=== PATIENT | female | born 1940 | race Caucasian/White ===

== ENCOUNTER 2017-02-01 17:10 | Emergency (ER) | payer MEDICARE ==
[~2017-02-01 17:10] MED LIST: ASA CHILDREN'S81 MG PO; ASTELIN NASAL S30 ML NS; CALCIUM + VITA1 EACH PO; CELEXA20 MG PO; COZAAR DPS50 MG PO; FEOSOL325 MG PO; FISH OIL300 MG PO; GLUCOPHAGE-DPS500 MG PO; LASIX40 M1 PO; LIPITOR40 MG PO; MICRO-K DPS10 MEQ PO; MIRALAX DPS17 GM PO; OMEPRAZOLE PO; TOPROL XL25 MG PO; TYLENOL325 MG PO; VITAMIN B COMP1 EACH PO; VITAMIN C250 MG PO; ZYRTEC10 M3 PO
--- NOTE | 2017-02-19 04:16 | ER ---
ADMIT: 02/01/2017 RM/LOC: ER [facility] MR#: [id number] [address] [facility] [address] [place], [place] [phone] DEE DEE BRIGHT [address] [address] Emergency Room Report SEX: F AGE: 76 : 1940 DATE: 02/01/2017 CHIEF COMPLAINT: Vomiting blood. HISTORY OF PRESENT ILLNESS: The patient is a 76-year-old female with known liver cirrhosis likely related to morbid obesity, who comes into the ER complaining that she vomited blood a couple of times. She states the vomiting blood began in the last several hours and she has had four episodes each one being probably a tablespoon of blood. There was fairly dark red apparently and no clots were noted. She does still have some nausea, but does not complain of any pain at this time. She normally sees a offset proof press operator in [place]. She states she has not had any dark stools or blood in her stools. She denies any chest pain or shortness of breath at this time. She has not had recent illness, and no fevers or chills. She denies any change in bowel or bladder function. REVIEW OF SYSTEMS: Ten-point review of systems is done and otherwise negative except as in HPI. PAST MEDICAL HISTORY: Liver cirrhosis, esophageal varices, diabetes, and hypertension. PAST SURGICAL HISTORY: Hysterectomy, heart valve replacement, and cardiac bypass. MEDICATIONS: See nurse's note. ALLERGIES: PENICILLIN AND SULFA. SOCIAL HISTORY: Denies smoking, drug, or alcohol use. She has never been a heavy user of alcohol in the past. PHYSICAL EXAMINATION: VITAL SIGNS: Blood pressure is 133/55, pulse 62, respirations 18, temp 97.3, and sats 98%. GENERAL: The patient is alert, no distress. HEENT: Head is atraumatic. Pupils are equal, round, and reactive to light. NECK: Supple. Airway is patent. LUNGS: Clear to auscultation. HEART: Regular rate and rhythm. ABDOMEN: Obese. Soft. She has some mild epigastric tenderness, but no rebound tenderness. No guarding. She does have active bowel sounds. SKIN: Warm and dry. She has sensation and motor intact grossly in all 4 extremities. No skin lesions or rashes. No ecchymosis or petechiae are noted. LABORATORY DATA: White count of 10, hemoglobin of 9.1, and platelets of 107. INR is 1.1. Sodium 143, potassium 5.7, her hemolyzed carbon dioxide 22, BUN 32, glucose 117, creatinine 1.4, AST 26, ALT 14, and lipase 152. EKG shows a sinus tachycardia, rate of 57, no signs of ST-elevation or acute PR. ADMIT: 02/01/2017 RM/LOC: [facility] MR#: [id number] [address] [place] [id number] DEANGELO DEE DEE A [address] [place] [address] Emergency Room Report SEX: F AGE: 76 : 1940 EMERGENCY DEPARTMENT COURSE: The patient presented with reports of vomiting blood and esophageal varices. We did go ahead and get blood drawn to check her blood counts or coagulation status and she presented by EMS with an IV in place. I had typed and crossed the patient for 2 units and established a second IV in the Emergency Department. She was given Protonix 80 mg IV, octreotide 50 mcg IV in addition to a 1 L bolus of normal saline. I spoke to Dr. Blake, who was on for the patient's primary care physician, Dr. Gilmore and due to her history of esophageal varices, who was not comfortable having the patient stay inpatient in our facility in case she would have worsening of her symptoms and severe bleeding. We would not really address it here appropriately. She normally sees Dr. Lieberman in [place], so I did contact the answering service of Dr. Lieberman and talked to the physician on-call for him. He has agreed to see the patient in consultation in [place] if we were to arrange transportation and obtain acceptance to a facility in [place]. The patient was accepted to be transfer to [facility] under the care of Dr. Victor Hugo Perez. Before transfer occurred, I shift ended and I checked the patient out to Dr. Antonio pending final disposition and transfer. At the time of transfer, the patient was stable with diagnosis of: 1. Upper gastrointestinal bleed. 2. Esophageal varices. 3. Liver cirrhosis. Tito Hidalgo MD/ kellen JOB #: [id number] CC: Tito Hidalgo MD, Attending Physician Teddy Gilmore MD, Family Physician
[2017-02-24] MEDS ORDERED: ALDACTONE DPS25 MG PO ×2 (09:10→09:12)
[2017-02-24] MEDS ORDERED: CORGARD DPS20 MG PO (09:10)
[2017-02-24] MEDS ORDERED: ALLEGRA DPS180 MG PO (09:11)
[2017-02-24] MEDS ORDERED: LASIX DPS20 MG PO (09:11)
[2017-02-24] MEDS ORDERED: ROCEPHIN DPS2 GM IM (09:11)
[2017-02-24] MEDS ORDERED: PROTONIX40 MG PO (09:12)
[2017-02-24] MEDS ORDERED: DITROPAN-DPS5 MG PO (09:12)
== END 2017-02-01 21:00 | disposition short-term general hospital (02) ==
LOC: ER 17:10
DX: K92.2 Gastrointestinal hemorrhage, unspecified (principal); K74.60 Unspecified cirrhosis of liver; I85.10 Secondary esophageal varices without bleeding; I10 Essential (primary) hypertension; E11.9 Type 2 diabetes mellitus without complications; Z90.710 Acquired absence of both cervix and uterus; Z88.0 Allergy status to penicillin; Z88.2 Allergy status to sulfonamides

== ENCOUNTER 2017-02-16 14:08 | Emergency (ER) | payer MEDICARE ==
--- NOTE | 2017-02-19 18:24 | ER ---
ADMIT: 02/16/2017 RM/LOC: ER [facility] MR#: [id number] 26[address] [facility] [address] [place], [place] [id number] DEE DEE BRIGHT [address] [address] Emergency Room Report SEX: F AGE: 76 : 1940 DATE: 02/16/2017 ADDENDUM: Please see my T-sheet for complete review of systems, past medical history, and physical exam. CHIEF COMPLAINT: Diarrhea. HISTORY OF PRESENT ILLNESS: This is a pleasant 76-year-old female, who presents to the ER after 2 days of diarrhea. The patient states she is having 3-4 episodes of loose phlegmy diarrhea per day. Denies any blood in her stool. Denies any nausea or vomiting. Denies any abdominal pain. She was recently hospitalized after acute esophageal varices bleeding. She was seen in the [place] ER and transferred to [facility], where she had a 6-day stay and some banding done on her varices. She states she has been recovering unremarkably from this. She has had to limit her diet secondary to the banding, but continues to eat and drink well. Denies any recent antibiotic use or known sick contacts. Does admit to some shortness of breath, which she attributes to her chronic anemia. She was discharged from [facility], hemoglobin of around 8. PAST MEDICAL HISTORY: Coronary artery disease, diabetes, hypertension, and liver disease. COURSE IN THE ER: Patient was seen and examined. She does have some dry mucous membranes. No abdominal tenderness appreciated on exam. She is afebrile and nontoxic. I did get some basic laboratory studies on her. White count 5.8, hemoglobin 7.7, hematocrit 25.5, platelets 117. CMP shows sodium 142, potassium 3.9, CO2 of 26, BUN 15, creatinine 1.3. Liver enzymes within normal limits. I did give her 500 mL bolus of normal saline as she did have some clinical signs of dehydration. ADMIT: 02/16/2017 RM/LOC: [facility] MR#: [id number] 26[address] [facility] [address] [place], [place] [id number] DEE DEE BRIGHT [address] [place] [address] Emergency Room Report SEX: F AGE: 76 : 1940 IMPRESSION: Acute diarrhea. DISPOSITION: The patient was encouraged to continue to increase her fluids as tolerated. Continue all of her home medications, certainly return with any worsening signs or symptoms or follow up with Dr. Gilmore as needed. I did warn her that given her recent hospitalization, does increase her chance for some hospital-acquired infections. To continue to watch the diarrhea closely certainly, alert someone if there is any change in her stooling habits. She is to follow up with Dr. Gilmore later this week, call for an appointment. Questions were sought and answered to the best of my ability and to the patient's satisfaction, discharged in stable condition. ALKA Christopher / Fox Nguyễn MD / kellen JOB #: [id number] CC: Fox Nguyễn MD, Attending Physician UNKNOWN, Family Physician
[2017-02-24] MEDS ORDERED: ALDACTONE DPS25 MG PO ×2 (09:10→09:12)
[2017-02-24] MEDS ORDERED: CORGARD DPS20 MG PO (09:10)
[2017-02-24] MEDS ORDERED: LASIX DPS20 MG PO (09:11)
[2017-02-24] MEDS ORDERED: ALLEGRA DPS180 MG PO (09:11)
[2017-02-24] MEDS ORDERED: ROCEPHIN DPS2 GM IM (09:11)
[2017-02-24] MEDS ORDERED: PROTONIX40 MG PO (09:12)
[2017-02-24] MEDS ORDERED: DITROPAN-DPS5 MG PO (09:12)
== END 2017-02-16 16:30 | disposition home or self-care (01) ==
LOC: ER 14:08
DX: R19.7 Diarrhea, unspecified (principal); I10 Essential (primary) hypertension; E11.9 Type 2 diabetes mellitus without complications; K21.9 Gastro-esophageal reflux disease without esophagitis; I25.10 Atherosclerotic heart disease of native coronary artery without angina pectoris; E78.5 Hyperlipidemia, unspecified; Z90.710 Acquired absence of both cervix and uterus; Z88.0 Allergy status to penicillin; Z88.2 Allergy status to sulfonamides

== ENCOUNTER 2017-02-18 11:28 | Observation (INO) | payer MEDICARE ==
[~2017-02-18] VITALS: Ht 157.5 cm; Wt 121.7 kg
--- NOTE | 2017-02-24 07:25 | HP ---
ADMIT: 02/18/2017 RM/LOC: 429 [facility] MR#: [id number] [address] [facility] [address] [place], [place] [phone] DEE DEE BRIGHT [facility] [address] History and Physical SEX: F AGE: 76 : 1940 DATE OF SERVICE: CHIEF COMPLAINT: Diarrhea, lightheadedness. HISTORY OF PRESENT ILLNESS: A 76-year-old female, who has had diarrhea for the last four days. She has had 3-4 loose stools per day. She says essentially after every time she tries to eat anything at all, she gets a loose watery mucus type stool. There has been no blood in stools. No black tarry stools. She has had some abdominal discomfort with slight cramping with diarrhea, but nothing severe. There has been no vomiting. Anita was recently hospitalized at [facility] on February 01 for acute upper GI bleed. She had esophageal varices that required banding on two separate occasions. She was dismissed with a hemoglobin of around 8. Two days ago, she was in the emergency room here at [place] where she was evaluated for the above related symptoms, specifically diarrhea, and her hemoglobin at that time was 7.5. Rest of her lab was okay. Unfortunately, she has continued to have diarrhea. Examination in the office today revealed her to be dehydrated coupled with the hemoglobin 2 days ago being 7.5, possible is lower now with hydration although if further lower, she will need blood transfusion. She is admitted to the hospital for IV fluid resuscitation and blood transfusion. She is not having any fever. No cough. No signs of infection or sepsis. As mentioned, she felt lightheaded and dizzy, especially when she gets up. She has not fainted. There has been no chest pain. PAST MEDICAL HISTORY: Very significant as well outlined in recent history and physicals. She does have history of coronary artery disease, valvular heart disease, had coronary artery bypass x3 with aortic bioprosthetic valve placed on 05/26/2015. She has history of sleep apnea, is on CPAP. She has history of hypertension, diabetes mellitus type 2, hyperlipidemia. She has esophageal varices, she follows with Dr. Eliud Lieberman of Gastroenterology in [place] for this. It is of ALVARADO. The liver cirrhosis is due to ALVARADO. She has no prior history of alcohol use. She has had a previous hysterectomy. SOCIAL HISTORY: Lives in [place]. She is . She denies any alcohol, drug, or tobacco use. She has five grown children. FAMILY HISTORY: Positive for lung cancer and breast cancer. Father had skin and lymph cancer. ALLERGIES: SHE IS ALLERGIC TO PENICILLIN AND SULFA. CURRENT MEDICATIONS: Currently takin. Lasix 20 mg daily. 2. Nadolol 40 mg daily. 3. Potassium supplements. 4. Pantoprazole 40 mg daily. ADMIT: 02/18/2017 RM/LOC: 429 [facility] MR#: [id number] [address] [place] [id number] DEE DEE BRIGHT [address] [place] [address] History and Physical SEX: F AGE: 76 : 1940 5. Lipitor 40 mg daily. 6. Oxybutynin 5 mg b.i.d. 7. Aldactone 25 mg daily. 8. Citalopram 20 mg daily. 9. Aspirin 81 mg daily. REVIEW OF SYSTEMS: Other than noted above, review of systems is negative. She denies specifically any chest pain or shortness of breath. She has prior history of hypertension, congestive heart failure, aortic valve replacement with biosynthetic valve, history diabetes type 2. Blood sugars have been staying below 150. Denies any urinary symptoms. Does have a history of chronic kidney disease. PHYSICAL EXAMINATION: GENERAL: A 76-year-old female, sitting in a wheelchair. We did not get her up to weigh her. VITAL SIGNS: Weight is 260 pounds on February 14. Blood pressure today is 118/62, heart rate is 91, she is afebrile, temp 98.2. O2 saturation 100% on room air. HEENT: Eyes, PERRLA. EOMs intact. TMs not seen. Throat is dry, not inflamed. Lips are not that pale. NECK: Supple. LUNGS: Clear to auscultation. HEART: Regular rate, grade 2/6 systolic murmur. BREASTS: Not examined. ABDOMEN: Bowel sounds normoactive. No mass, organomegaly, or tenderness. /RECTAL: Deferred. EXTREMITIES: No clubbing or cyanosis. Trace of edema. DIAGNOSTIC IMPRESSION: 1. Moderate dehydration. 2. Acute enteritis, rule out infectious etiology. 3. Anemia due to recent blood loss. 4. Liver cirrhosis - nonalcoholic steatohepatitis. 5. Portal hypertension with esophageal varices, status post clipping and banding. 6. Bioprosthetic aortic valve. ADMIT: 02/18/2017 RM/LOC: 429 [facility] MR#: [id number] [address] [place] [id number] [place] [address] History and Physical SEX: F AGE: 76 : 1940 7. Coronary artery disease, previous CABG. 8. Diabetes mellitus type 2. 9. Hypertension. 10.Hyperlipidemia. 11.Chronic kidney disease, stage 2. 12.Gastroesophageal reflux disease. 13.Obesity. PLAN: We will admit to hospital for IV fluids. We will check her lab. Of course, check hemoglobin; if it is any lower, she will need transfusion. We will hold her home medications for now. We will check stool studies for C. diff and enteric pathogens. Teddy Gilmore MD/ kellen JOB #: [id number] CC: Teddy Gilmore, Attending Physician Teddy Gilmore, Family Physician
[2017-02-24] MEDS ORDERED: ALDACTONE DPS25 MG PO ×2 (09:10→09:12)
[2017-02-24] MEDS ORDERED: CORGARD DPS20 MG PO (09:10)
[2017-02-24] MEDS ORDERED: LASIX DPS20 MG PO (09:11)
[2017-02-24] MEDS ORDERED: ROCEPHIN DPS2 GM IM (09:11)
[2017-02-24] MEDS ORDERED: ALLEGRA DPS180 MG PO (09:11)
[2017-02-24] MEDS ORDERED: PROTONIX40 MG PO (09:12)
[2017-02-24] MEDS ORDERED: DITROPAN-DPS5 MG PO (09:12)
--- NOTE | 2017-02-28 07:52 | DS ---
ADMIT: 02/18/2017 RM/LOC: 429 [facility] MR#: [id number] [address] [address] [place] [address] General Discharge Summary SEX: F AGE: 76 : 1940 ADMISSION DATE: 02/18/2017 DISCHARGE DATE: 02/22/2017 ADMITTING DIAGNOSES: Dehydration and volume depletion. DISMISSAL DIAGNOSES: 1. Dehydration. 2. Acute on chronic blood loss anemia. 3. Acute enteritis. 4. Non-alcoholic liver cirrhosis. 5. Portal hypertension with esophageal varices. 6. Bioprosthetic aortic valve. 7. Coronary artery disease. 8. Diabetes mellitus type 2. 9. Hypertension. 10.Hyperlipidemia. 11.Chronic kidney disease stage 2. 12.Gastroesophageal reflux disease. 13.Morbid obesity. CHIEF COMPLAINT AND HISTORY OF PRESENT ILLNESS: A 76-year-old female, who presented to the office with diarrhea for the last 4 days. She is having 3-4 loose stools per day. She says every time she tries eat anything, she gets only mucus-type stool. There has been no blood in stools, no black tarry stools. She has had a history of abdominal pain and slight cramping with diarrhea but nothing severe. There has been no fever. There has been no vomiting. She was recently hospitalized at [facility] for banding of esophageal varices. She did have upper GI bleed due to esophageal varices. These varices are due to portal hypertension from liver cirrhosis of unknown etiology. She recently was dismissed from [facility] with a hemoglobin of approximately 8. Hemoglobin two days ago in the office was 7.5. She is admitted to the hospital for dehydration and severe anemia. LABORATORY REPORTS: Initial hemoglobin on February 18 was 7.9 after hydration. Hemoglobin was 6.8 after transfusion. Hemoglobin was 8.8. Prior to dismissal, hemoglobin was 8.0. Platelets were 95,000. White count was 4.5. Electrolytes prior to dismissal; sodium 142, potassium 3.7, chloride 110, CO2 21, BUN 8, creatinine 1.1, glucose 99. Liver function tests were normal with alkaline phosphatase 62, AST 17, ALT 12. Calcium was 9.3. Procalcitonin was less than 0.05. Lactic acid was 1.7 on admission. Cardiac enzymes were normal on admission. Blood sugars monitored during the hospital stay were generally 95 to 125. UA showed some bacteria. Culture grew out E. coli greater than 100,000, sensitive to Macrodantin, sulfa, and Rocephin, resistant to quinolones. Stool for C. diff was negative. Stool for enteric pathogens was negative. Chest x-ray showed cardiomegaly and small right pleural effusion. EKG showed sinus bradycardia, prolonged QT interval, left axis deviation, and poor R-wave progression. ADMIT: 02/18/2017 RM/LOC: 429 [facility] MR#: [id number] [address] [place] [phone] [place] [address] General Discharge Summary SEX: F AGE: 76 : 1940 COURSE IN THE HOSPITAL: Anita was admitted, started on IV fluids. Lab was ordered. Stool studies were ordered, placed on IV Protonix. She was typed and crossed, placed on sliding scale insulin. She was given 1 unit of packed red blood cells. She was given IV Venofer. She was placed on IV Rocephin when the urine was cultured. Due to weakness, [facility] was consulted and arrangements were made for her to have skilled care nursing facility at [facility]. At time of transfer to residential, she was on; 1. Aldactone 25 mg daily. 2. Celexa 20 mg daily. 3. Corgard 20 mg daily. 4. Iron 325 mg daily. 5. Lasix 20 mg p.o. b.i.d. Aspirin was discontinued. She was also continued on: 1. Oxybutynin 5 mg b.i.d. 2. Protonix 40 mg daily. 3. Potassium 10 mEq t.i.d. She is to have CBC and CMP in 3 days. She will be seen back in the office in 3-4 days for followup. She is a DNR/DNI. Teddy Gilmore MD/ kellen JOB #: [id number] CC: Teddy Gilmore MD, Attending Physician Teddy Gilmore MD, Family Physician
== END 2017-02-22 14:45 ==
LOC: 4PCU 11:28
PROVIDERS: ADMIT Family Medicine
DX: E86.0 Dehydration (principal); K52.9 Noninfective gastroenteritis and colitis, unspecified; K74.60 Unspecified cirrhosis of liver; K76.6 Portal hypertension; E11.22 Type 2 diabetes mellitus with diabetic chronic kidney disease; I12.9 Hypertensive chronic kidney disease with stage 1 through stage 4 chronic kidney disease, or unspecified chronic kidney disease; N18.2 Chronic kidney disease, stage 2 (mild); Z95.2 Presence of prosthetic heart valve; N39.0 Urinary tract infection, site not specified; I25.10 Atherosclerotic heart disease of native coronary artery without angina pectoris; E78.5 Hyperlipidemia, unspecified; K21.9 Gastro-esophageal reflux disease without esophagitis; E66.9 Obesity, unspecified; D50.0 Iron deficiency anemia secondary to blood loss (chronic); Z79.82 Long term (current) use of aspirin; Z79.899 Other long term (current) drug therapy; Z88.0 Allergy status to penicillin; Z88.2 Allergy status to sulfonamides; Z90.710 Acquired absence of both cervix and uterus